=== PATIENT | female | born 1985 | race Caucasian/White ===

== ENCOUNTER → 2023-08-25 09:38 | Outpatient (REF) | payer BC, SELFPAY | LOC: PAVMRI 09:38 | PROVIDERS: ATTENDING PHYSICIAN Nurse Practitioner Family | DX: G43.919 Migraine, unspecified, intractable, without status migrainosus (principal) | CPT/HCPCS: 70553; A9575 ==

== ENCOUNTER → 2023-09-06 08:01 | Outpatient (REF) | payer BC, SELFPAY | LOC: RAD 08:01 | PROVIDERS: ATTENDING PHYSICIAN Nurse Practitioner Family | DX: R42 Dizziness and giddiness (principal) | CPT/HCPCS: 93880 ==